=== PATIENT | female | born 1980 | race Caucasian/White ===

== ENCOUNTER 2024-02-05 15:44 | Inpatient (IN) | payer BC ==
[~2024-02-05] VITALS: Ht 157.5 cm; Wt 85.5 kg
[2024-02-05 15:50] VITALS: BP_SYST 173; PULSE 89; RESP 18; TEMP 98.3; O2SAT 98
[2024-02-05] MEDS: KETOROLAC TROMETHAMINE 60 MG/2 ML VIAL IM ONE (16:20)
[2024-02-05 16:28] LABS: BILIRUBIN,URINE NEGATIVE (NEGATIVE); BLOOD, URINE 3+ (NEGATIVE); CLARITY/URINE CLOUDY (CLEAR); GLUCOSE,URINE TRACE (NEGATIVE); KETONES,URINE NEGATIVE (NEGATIVE); LEUKOCYTE ESTERASE ,URINE NEGATIVE (NEGATIVE); NITRITE, URINE NEGATIVE (NEGATIVE); PROTEIN URINE 1+ (NEGATIVE); UROBILINOGEN,URINE 0.2 (0.2-1.0)
[2024-02-05 16:29] LABS: BASOPHILS # (AUTO) 0.3 K/uL (0.0-0.2); BASOPHILS % (AUTO) 3.3 % (0.0-2.0); EOSINOPHILS # (AUTO) 0.2 K/uL (0.0-0.4); EOSINOPHILS % (AUTO) 2.5 % (0.0-4.0); HEMATOCRIT 43.6 % (36-48); HEMOGLOBIN 15.2 g/dL (12.0-16.0); LYMPHOCYTES # (AUTO) 0.8 K/uL (1.0-5.5); LYMPHOCYTES % (AUTO) 10.1 % (20.5-51.5); MEAN CORPUSCULAR HEMOGLOBIN 30 pg (27-31); MEAN CORPUSCULAR HGB CONC 35 % (32-36); MEAN CORPUSCULAR VOLUME 87 fL (79.0-98.0); MONOCYTES # (AUTO) 0.5 K/uL (0.0-1.0); MONOCYTES % (AUTO) 6.1 % (1.7-9.3); NEUTROPHILS # (AUTO) 6.2 K/uL (1.8-7.7); PLATELET COUNT (AUTO) 230 K/uL (130-430); RED BLOOD CELL COUNT(AUTO) 5.01 MIL/uL (4.2-6.2)
[2024-02-05 16:41] LABS: INR 1.1 (0.8-1.2); PROTHROMBIN TIME 11.1 SECS (9.5-12.5)
[2024-02-05 16:49] LABS: ALBUMIN 3.4 g/dL (3.4-4.8); CALCIUM 8.5 mg/dL (8.4-11.0); CREATININE 0.84 mg/dL (0.55-1.30); POTASSIUM 3.6 mmol/L (3.5-5.1); TOTAL BILIRUBIN 0.7 mg/dL (0.0-1.0); TOTAL PROTEIN, SERUM 8.3 g/dL (6.4-8.3)
[2024-02-05 16:57] LABS: SERUM HCG (QUALITATIVE) NEGATIVE (NEGATIVE)
[2024-02-05 16:59] LABS: BILIRUBIN,DIRECT 0.2 mg/dL (0.0-0.3)
[2024-02-05 17:00] LABS: COLOR,URINE AMBER (YELLOW)
[2024-02-05 18:12] LABS: BACTERIA,URINE FEW /HPF (None Seen); MUCUS,URINE None Seen /LPF (None Seen); RBC,URINE >100 /HPF (0-3); WBC,URINE 0-3 /HPF (0-3)
[2024-02-05] MEDS ORDERED: OMEP20CA15 PO (18:23)
[2024-02-05] MEDS ORDERED: METO50TA16 PO (18:23)
[2024-02-05] MEDS ORDERED: CHLO25TA2 PO (18:23)
[2024-02-05 19:30] VITALS: BP_SYST 163; PULSE 83; RESP 16; TEMP 96.9
[2024-02-05] MEDS: D5/0.45 NS 1,000 ML IV ONE (20:22)
[2024-02-05] MEDS ORDERED: cloNIDine HCL 0.2 MG TABLET PO PRN (21:00)
[2024-02-05] MEDS ORDERED: ACETAMINOPHEN 325 MG TABLET PO PRN (21:00)
[2024-02-05] MEDS: D5/0.45 NS 1,000 ML IV SCH (21:00)
[2024-02-05] MEDS ORDERED: ONDANSETRON HCL 4 MG/2 ML VIAL IVP PRN (21:00)
[2024-02-05] MEDS ORDERED: traZODone HCL 50 MG TABLET (DESYREL) PO PRN (21:00)
[2024-02-05] MEDS: METOPROLOL TARTRATE 50 MG TABLET PO SCH (21:29)
[2024-02-05] MEDS: KETOROLAC TROMETHAMINE 30 MG VIAL IVP PRN (21:29)
[2024-02-05] MEDS ORDERED: NALOXONE HCL 0.4 MG/ML AMP (NARCAN) IVP PRN ×2 (22:30)
[2024-02-05] MEDS ORDERED: HYDROcodone/ACETAMIN 5-325 MG TAB (NORCO/ VICODIN) PO PRN (22:30)
[2024-02-05] MEDS ORDERED: HYDROcodone/ACETAMIN 10-325 MG TAB PO PRN (22:30)
[2024-02-05] MEDS ORDERED: LORazepam 2 MG/ML VIAL IVP PRN (22:30)
[2024-02-06] VITALS: BP_SYST 148; PULSE 82; RESP 18; TEMP 97.6; O2SAT 98
[2024-02-06 07:31] LABS: BASOPHILS # (AUTO) 0.1 K/uL (0.0-0.2); BASOPHILS % (AUTO) 0.9 % (0.0-2.0); EOSINOPHILS # (AUTO) 0.3 K/uL (0.0-0.4); EOSINOPHILS % (AUTO) 4.4 % (0.0-4.0); HEMATOCRIT 41.6 % (36-48); HEMOGLOBIN 14.4 g/dL (12.0-16.0); LYMPHOCYTES # (AUTO) 1.4 K/uL (1.0-5.5); LYMPHOCYTES % (AUTO) 22.7 % (20.5-51.5); MEAN CORPUSCULAR HEMOGLOBIN 31 pg (27-31); MEAN CORPUSCULAR HGB CONC 35 % (32-36); MEAN CORPUSCULAR VOLUME 88 fL (79.0-98.0); MONOCYTES # (AUTO) 0.6 K/uL (0.0-1.0); NEUTROPHILS # (AUTO) 3.8 K/uL (1.8-7.7); PLATELET COUNT (AUTO) 212 K/uL (130-430); RED BLOOD CELL COUNT(AUTO) 4.72 MIL/uL (4.2-6.2); RED CELL DISTRIBUTION WIDTH 14.1 % (9.0-15.0)
[2024-02-06 08:00] VITALS: BP_SYST 174; PULSE 65; RESP 18; TEMP 97.9; O2SAT 99
[2024-02-06 08:06] LABS: CALCIUM 8.8 mg/dL (8.4-11.0); CREATININE 0.58 mg/dL (0.55-1.30); POTASSIUM 3.2 mmol/L (3.5-5.1); TOTAL PROTEIN, SERUM 7.6 g/dL (6.4-8.3)
[2024-02-06] MEDS ORDERED: OMEPRAZOLE Non-Formulary 20 MG CAPSULE.DR PO SCH (09:00)
[2024-02-06] MEDS: PANTOPRAZOLE SODIUM 40 MG TAB PO SCH (09:14)
[2024-02-06] MEDS: CHLORTHALIDONE 25 MG TABLET (HYGROTON) PO SCH (10:16)
[2024-02-06 12:00] VITALS: BP_SYST 154; PULSE 89; RESP 18; TEMP 98.6; O2SAT 99
[2024-02-06] MEDS: POTASSIUM CHLORIDE 20 MEQ TABLET.ER PO ONE (13:14)
[2024-02-06 16:00] VITALS: BP_SYST 145; PULSE 85; RESP 16; TEMP 98.6; O2SAT 97
[2024-02-06 20:05] VITALS: O2SAT 97
[2024-02-06] MEDS: hydrALAZINE HCL 20 MG/ML VIAL IVP PRN (20:55)
[2024-02-06] MEDS: ACETAMINOPHEN 325 MG TABLET PO PRN (22:33)
[2024-02-07] VITALS: BP_SYST 165; PULSE 68; RESP 19; TEMP 97; O2SAT 99
[2024-02-07 04:29] LABS: BASOPHILS % (AUTO) 0.9 % (0.0-2.0); EOSINOPHILS # (AUTO) 0.3 K/uL (0.0-0.4); EOSINOPHILS % (AUTO) 6.5 % (0.0-4.0); HEMATOCRIT 42.5 % (36-48); HEMOGLOBIN 14.7 g/dL (12.0-16.0); LYMPHOCYTES # (AUTO) 1.2 K/uL (1.0-5.5); LYMPHOCYTES % (AUTO) 25.4 % (20.5-51.5); MEAN CORPUSCULAR HEMOGLOBIN 31 pg (27-31); MEAN CORPUSCULAR HGB CONC 35 % (32-36); MEAN CORPUSCULAR VOLUME 88 fL (79.0-98.0); MONOCYTES # (AUTO) 0.5 K/uL (0.0-1.0); MONOCYTES % (AUTO) 10.4 % (1.7-9.3); NEUTROPHILS # (AUTO) 2.7 K/uL (1.8-7.7); NEUTROPHILS % (AUTO) 56.8 % (40.0-70.0); PLATELET COUNT (AUTO) 206 K/uL (130-430); RED BLOOD CELL COUNT(AUTO) 4.81 MIL/uL (4.2-6.2); RED CELL DISTRIBUTION WIDTH 14.2 % (9.0-15.0); WHITE BLOOD COUNT (AUTO) 4.8 K/uL (4.8-10.8)
[2024-02-07 05:07] LABS: CALCIUM 9.2 mg/dL (8.4-11.0); CREATININE 0.53 mg/dL (0.55-1.30); POTASSIUM 3.1 mmol/L (3.5-5.1); TOTAL BILIRUBIN 0.9 mg/dL (0.0-1.0); TOTAL PROTEIN, SERUM 7.7 g/dL (6.4-8.3)
[2024-02-07 07:00] VITALS: O2SAT 98
[2024-02-07 08:00] VITALS: BP_SYST 159; PULSE 92; RESP 18; TEMP 97.6; O2SAT 98
[2024-02-07] MEDS ORDERED: PRO40 PO (10:02)
[2024-02-07] MEDS ORDERED: LOP600 PO (10:02)
[2024-02-07] MEDS ORDERED: TRAZ-250 PO (10:02)
[2024-02-07 12:00] VITALS: BP_SYST 160; PULSE 82; RESP 16; TEMP 97.6; O2SAT 80
[2024-02-07 12:45] VITALS: BP_SYST 152; PULSE 78; RESP 19; TEMP 98.3; O2SAT 97
[2024-02-07 13:08] VITALS: BP_SYST 160; PULSE 80; RESP 16; TEMP 97.4; O2SAT 82
[2024-02-08 12:06] LABS: ANTI NUCLEAR AB WITH REFLEX Negative (Negative)
== END 2024-02-07 13:40 | disposition home or self-care (01) | DRG 439 ==
LOC: SED 15:44 → SMU 18:10
PROVIDERS: ADMIT Preventive Medicine Preventive Medicine/Occupational Environmental Medicine; ATTEND Preventive Medicine Preventive Medicine/Occupational Environmental Medicine
DX: K85.90 Acute pancreatitis without necrosis or infection, unspecified (principal); E87.1 Hypo-osmolality and hyponatremia; E88.09 Other disorders of plasma-protein metabolism, not elsewhere classified; R73.9 Hyperglycemia, unspecified; R74.01 Elevation of levels of liver transaminase levels; K57.30 Diverticulosis of large intestine without perforation or abscess without bleeding; K76.0 Fatty (change of) liver, not elsewhere classified; E78.1 Pure hyperglyceridemia; D25.9 Leiomyoma of uterus, unspecified; I10 Essential (primary) hypertension; E66.9 Obesity, unspecified; Z68.34 Body mass index [BMI] 34.0-34.9, adult; Z80.0 Family history of malignant neoplasm of digestive organs
CPT/HCPCS: 36415; 76705; 80048; 80053; 80061; 80076; 81000; 81001; 81015; 82150; 82787; 83605; 83690; 84703; 85025; 85610; 85730; 86038; 96372; 99285; J0360; J1885